=== PATIENT | male | born 1955 | race Caucasian/White ===

== ENCOUNTER → 2017-07-11 | Outpatient (CLI) | payer OTHER ==
[~2017-07-11] MED LIST: CYCL5TAB PO; GABA300C10 PO; HYDR-3241 PO; IBUP200C8 PO; LISI-170 PO; OMEP-110 PO; OMEP20TA62 PO; TAMS-11 PO; VITAMIN B50 PO
[2017-07-11 12:36] LABS: BASOPHILS # (AUTO) 0.04 x10^3/uL (0-0.1); BASOPHILS % (AUTO) 1 % (0-1); EOSINOPHILS # (AUTO) 0.17 x10^3/uL (0-0.4); EOSINOPHILS % (AUTO) 2 % (1-7); LYMPHOCYTES # (AUTO) 1.91 x10^3/uL (1-3.4); LYMPHOCYTES % (AUTO) 22 % (22-44); MD NO; MEAN CORPUSCULAR HEMOGLOBIN 32.6 pg (27.5-34.5); MEAN CORPUSCULAR HGB CONC 34.4 g/dL (33.2-36.2); MEAN PLATELET VOLUME 8.2 fL (7.4-10.4); MONOCYTES # (AUTO) 0.62 x10^3/uL (0.2-0.8); MONOCYTES % (AUTO) 7 % (2-9); NEUTROPHILS % (AUTO) 68 % (42-75); PLATELET COUNT 271 x10^3/uL (130-400); RED BLOOD COUNT 4.51 x10^6/uL (4.38-5.82); RED CELL DISTRIBUTION WIDTH 13.8 % (9.4-14.8)
[2017-07-11 12:40] LABS: INTERNATIONAL NORMALIZED RATIO 0.97 (0.93-1.1); PROTHROMBIN TIME 10.1 Seconds (9.6-11.5)
[2017-07-11 12:44] LABS: ALANINE AMINOTRANSFERASE 49 U/L (12-78); ALBUMIN 3.9 g/dL (3.4-5.0); ANION GAP 7 mmol/L (5-15); CALCIUM 8.8 mg/dL (8.5-10.1); CHLORIDE 109 mmol/L (98-107)
[2017-07-11 12:46] LABS: ALKALINE PHOSPHATASE 49 U/L (45-117); BILIRUBIN,TOTAL 0.5 mg/dL (0.2-1.0); CREATININE 0.98 mg/dL (0.7-1.3); TOTAL PROTEIN 7.7 g/dL (6.4-8.2)
== END | disposition home or self-care (01) ==
LOC: STAR 11:24
PROVIDERS: ATTEND Neurological Surgery
DX: Z01.818 Encounter for other preprocedural examination (principal); M51.36 Other intervertebral disc degeneration, lumbar region; D17.30 Benign lipomatous neoplasm of skin and subcutaneous tissue of unspecified sites
CPT/HCPCS: 36415; 71046; 80053; 85025; 85610; 85730; 93005

== ENCOUNTER 2017-07-23 05:38 | Day surgery (SDC) | payer OTHER ==
[2017-07-11 11:53] VITALS: BP 139/89
[~2017-07-23] VITALS: Ht 180.3 cm; Wt 99.6 kg
[2017-07-23] MEDS ORDERED: LACTATED RINGERS 1,000 ML IV SCH (06:09)
[2017-07-23] MEDS ORDERED: ACET325T14 PO (06:15)
[2017-07-23] MEDS ORDERED: LIDOCAINE-MPF 1%, 2ML INFIL ONE (06:30)
[2017-07-23] MEDS ORDERED: FENTANYL PF 250 MCG/5ML ONE (06:33)
[2017-07-23] MEDS ORDERED: MIDAZOLAM 1 MG/ML, 2ML ONE (06:33)
[2017-07-23] MEDS ORDERED: PROPOFOL 10 MG/ML, 20ML ONE (06:34)
[2017-07-23] MEDS ORDERED: NEOSTIGMINE 1 MG/ML, 10ML ONE (06:37)
[2017-07-23] MEDS ORDERED: GLYCOPYRROLATE 0.4 MG/2 ML, 2ML ONE (06:37)
[2017-07-23] MEDS ORDERED: CEFAZOLIN 1,000 MG ONE ×2 (06:43)
[2017-07-23] MEDS ORDERED: WATER-INJECTION,STERILE 10 ML IV ONE (06:43)
[2017-07-23] MEDS ORDERED: PROPOFOL 50 ML ONE ×2 (06:56→08:24)
[2017-07-23] MEDS ORDERED: PROMETHAZINE 12.5 MG SUPP PR PRN (07:00)
[2017-07-23] MEDS ORDERED: MEPERIDINE/PF 25MG/0.5ML IVPush PRN (07:00)
[2017-07-23] MEDS ORDERED: PROMETHAZINE 25 MG/ML, 1ML IV PRN (07:00)
[2017-07-23] MEDS ORDERED: LABETALOL 5MG/ML, 20ML IV PRN (07:00)
[2017-07-23] MEDS ORDERED: hydrALAzine 20 MG/ML, 1ML IV PRN (07:00)
[2017-07-23] MEDS ORDERED: DIAZEPAM 5 MG/ML, 2ML IVPush PRN (07:00)
[2017-07-23] MEDS ORDERED: HYDROmorphone 1 MG/ML, 1ML IV PRN (07:00)
[2017-07-23] MEDS ORDERED: ONDANSETRON 2MG/ML, 2ML IVPush PRN (07:00)
[2017-07-23] MEDS ORDERED: EPINEPHRINE 1 MG/ML, 1ML ONE (07:17)
[2017-07-23] MEDS ORDERED: BACITRACIN 50,000 UNIT ONE (07:17)
[2017-07-23] MEDS ORDERED: BUPIVACAINE/PF 0.5% ONE (07:17)
[2017-07-23] MEDS ORDERED: THROMBIN 20,000 UNIT VIAL TP ONE (07:17)
[2017-07-23] MEDS ORDERED: BACITRACIN OINT 500U/GM, 15 GM ONE (07:17)
[2017-07-23] MEDS ORDERED: ROCURONIUM 10 MG/ML,10ML ONE (07:39)
[2017-07-23] MEDS ORDERED: BUPIVACAINE/PF 0.5% INFIL ONE ×2 (09:00)
[2017-07-23] MEDS ORDERED: OXYcodone 5 MG/5 ML ORAL.SOL UDC ONE ×2 (09:46→10:16)
[2017-07-23] MEDS ORDERED: FENTANYL PF 100 MCG/2ML ONE (09:46)
[2017-07-23] MEDS ORDERED: MORPHINE SULFATE 4 MG/ML, 1ML ONE ×2 (09:46→10:16)
[2017-07-23] MEDS: OXYcodone 5 MG/5 ML ORAL.SOL UDC PO PRN ×2 (09:47→10:17)
[2017-07-23] MEDS: FENTANYL PF 100 MCG/2ML IV PRN ×2 (09:50→10:01)
[2017-07-23] MEDS: morphine SULFATE 10 MG/ML, 1ML IV PRN ×3 (09:55→10:23)
[2017-07-23] MEDS ORDERED: methylPREDNISolone*ACETATE* 80 MG/ML IM ONE (11:00)
[2017-07-23] MEDS ORDERED: OXYcodone IR 5MG TABLET PO PRN (14:00)
[2017-07-23] MEDS ORDERED: OXYcodone IR 5MG TABLET ONE (14:04)
== END 2017-07-23 14:15 | disposition home or self-care (01) ==
LOC: OUT 05:38 → EDSTATUS 12:30 → OUT 14:15
PROVIDERS: ATTEND Neurological Surgery
DX: M51.26 Other intervertebral disc displacement, lumbar region (principal); M48.061 Spinal stenosis, lumbar region without neurogenic claudication; M43.16 Spondylolisthesis, lumbar region
CPT/HCPCS: 22630; 72100; 88305; 88307; C1729; C9359; J0171; J0690; J1040; J2250; J2270; J2704; J2710; J3010; J3360; J3490; J7120; 88304